=== PATIENT | female | born 1995 | race Caucasian/White ===

== ENCOUNTER 2016-06-10 13:39 | Emergency (ER) | payer BC ==
[2016-06-10 15:07] VITALS: BP 116/59
--- NOTE | 2016-06-10 17:03 | UC ---
FLU HPI - HPI Summary HPI Summary: SINUS CONGESTION CHEST CONGESTION COUGH, HEADACHE, FEVER. - History of Current Complaint Chief Complaint: UCGeneralIllness Stated Complaint: FLU SXS Time Seen by Provider: 06/10/16 15:16 Hx Obtained From: Patient Hx Last Menstrual Period: 06/10/16 Onset/Duration: Sudden Onset, Lasting Days, Still Present Severity Currently: Moderate Severity Initially: Moderate Pain Intensity: 0 Pain Scale Used: 0-10 Numeric Associated Signs & Symptoms: Positive: F/C, Myalgia, Cough, Nasal Congestion, Headache Related Hx: Possible Flu/Infectious Exposure - Allergy/Home Medications Allergies/Adverse Reactions: Allergies Allergy/AdvReac Type Severity Reaction Status Date / Time Amoxicillin Allergy Rash Verified 06/10/16 15:06 PMH/Surg Hx/FS Hx/Imm Hx Previously Healthy: Yes - Surgical History Surgical History: Yes Surgery Procedure, Year, and Place: Right great toe nail bed as young child - Family History Known Family History: Negative: Respiratory Disease - Social History Occupation: Student Lives: With Family Alcohol Use: None Substance Use Type: None Smoking Status (MU): Never Smoked Tobacco - Immunization History Most Recent Influenza Vaccination: [id number] Vaccination Up to Date: Yes Review of Systems Constitutional: Fever, Chills Skin: Negative Eyes: Negative ENT: Nasal Discharge Respiratory: Cough Cardiovascular: Negative Gastrointestinal: Negative Genitourinary: Negative Motor: Negative Neurovascular: Negative Musculoskeletal: Negative Neurological: Negative Psychological: Negative All Other Systems Reviewed And Are Negative: Yes Physical Exam Triage Information Reviewed: Yes Appearance: Well-Appearing, No Pain Distress, Ill-Appearing - MODERATE Vital Signs: Initial Vital Signs Temp 101.5 F 06/10/16 15:03 Pulse 87 06/10/16 15:03 Resp 17 06/10/16 15:03 BP 116/59 06/10/16 15:03 Pulse Ox 100 06/10/16 15:03 Vital Signs Reviewed: Yes Eye Exam: Normal Eyes: Positive: Conjunctiva Clear ENT: Positive: Hearing grossly normal, Pharynx normal, Nasal congestion, Nasal drainage, TM dull Dental Exam: Normal Neck exam: Normal Neck: Positive: Supple, Nontender, No Lymphadenopathy Respiratory Exam: Normal Respiratory: Positive: Chest non-tender, Lungs clear, Normal breath sounds, No respiratory distress, No accessory muscle use Cardiovascular Exam: Normal Cardiovascular: Positive: RRR, No Murmur, Pulses Normal, Brisk Capillary Refill Abdominal Exam: Normal Abdomen Description: Positive: Nontender, No Organomegaly Musculoskeletal Exam: Normal Musculoskeletal: Positive: Strength Intact, ROM Intact Neurological Exam: Normal Psychological Exam: Normal Skin Exam: Normal Flu Course/Dx - Differential Dx/Diagnosis Differential Diagnosis/HQI/PQRI: Influenza, Upper Respiratory Infection Provider Diagnoses: INFLUENZA Discharge - Discharge Plan Condition: Stable Disposition: HOME Prescriptions: Oseltamivir CAP* [Tamiflu CAP*] 75 mg PO BID #10 cap Patient Education Materials: Influenza (ED) Forms: *School Release Referrals: Hyun Humphreys MD [Primary Care Provider] -
== END 2016-06-10 16:42 | disposition home or self-care (01) ==
LOC: UCCORT 13:39
DX: J11.1 Influenza due to unidentified influenza virus with other respiratory manifestations (principal); Z88.1 Allergy status to other antibiotic agents
CPT/HCPCS: 87502; 99212; G0463

== ENCOUNTER 2016-06-14 17:23 | Emergency (ER) | payer BC ==
[2016-06-14 18:30] VITALS: BP 104/49
--- NOTE | 2016-06-14 18:53 | UC ---
Respiratory Complaint HPI - HPI Summary HPI Summary: Pt presents with c/o of cough that began ~ 6 days ago. Pt was diagnosed with influenza and began tamiflu. Pt reports that she is in general, feeling better but still has cough. Cough, is dry and keeping her up at night. - History of Current Complaint Chief Complaint: UCGeneralIllness Stated Complaint: COUGH Time Seen by Provider: 06/14/16 18:25 Hx Obtained From: Patient Hx Last Menstrual Period: 06/07/16 ?: No Onset/Duration: Gradual Onset, Lasting Days - 6 Timing: Intermittent Episodes Severity Initially: Mild Severity Currently: Mild Character: Cough: Nonproductive Aggravating Factors: Deep Breaths, Recumbent Position Alleviating Factors: Nothing Associated Signs And Symptoms: Positive: URI - Risk Factors Pulmonary Embolism Risk Factors: Negative Cardiac Risk Factors: Negative Pseudomonas Risk Factors: Negative Tuberculosis Risk Factors: Negative - Allergies/Home Medications Allergies/Adverse Reactions: Allergies Allergy/AdvReac Type Severity Reaction Status Date / Time Amoxicillin Allergy Rash Verified 06/14/16 18:23 Home Medications: Home Medications GuaiFENesin DM* [Robitussin DM*] 10 ml PO Q6H PRN 06/14/16 [History Confirmed ] Ibuprofen TAB* [Advil TAB*] 200 mg PO Q6H PRN 06/14/16 [History Confirmed ] PMH/Surg Hx/FS Hx/Imm Hx Previously Healthy: Yes - Surgical History Surgical History: Yes Surgery Procedure, Year, and Place: Right great toe nail bed as young child - Family History Known Family History: Negative: Respiratory Disease - Social History Alcohol Use: None Substance Use Type: None Smoking Status (MU): Never Smoked Tobacco - Immunization History Most Recent Influenza Vaccination: [id number] Vaccination Up to Date: Yes Review of Systems Constitutional: Fatigue Skin: Negative Eyes: Negative ENT: Other Respiratory: Cough Cardiovascular: Negative Gastrointestinal: Negative Genitourinary: Negative Motor: Negative Neurovascular: Negative Musculoskeletal: Negative Neurological: Negative Psychological: Negative All Other Systems Reviewed And Are Negative: Yes Physical Exam Triage Information Reviewed: Yes Appearance: Ill-Appearing Vital Signs: Initial Vital Signs Temp 98.1 F 06/14/16 18:24 Pulse 55 06/14/16 18:24 Resp 16 06/14/16 18:24 BP 104/49 06/14/16 18:24 Pulse Ox 99 06/14/16 18:24 Eye Exam: Normal ENT Exam: Other ENT: Positive: Nasal congestion Neck exam: Normal Respiratory Exam: Other Respiratory: Positive: Wheezing - mild Cardiovascular Exam: Normal Musculoskeletal Exam: Normal Neurological Exam: Normal Psychological Exam: Normal Skin Exam: Normal UC Diagnostic Evaluation - Laboratory O2 Sat by Pulse Oximetry: 99 Respiratory Course/Dx - Differential Dx/Diagnosis Differential Diagnosis/HQI/PQRI: Influenza, Other Provider Diagnoses: Post viral cough Discharge - Discharge Plan Condition: Stable Disposition: HOME Prescriptions: Albuterol HFA INHALER* [Ventolin HFA Inhaler*] 1 - 2 puff INH Q6H PRN #1 mdi PRN Reason: Wheezing Benzonatate CAP* [Tessalon 100 MG CAP*] 100 mg PO TID PRN #30 cap PRN Reason: Cough predniSONE TAB* [Deltasone TAB*] 30 mg PO DAILY #12 tab Patient Education Materials: Acute Cough (ED) Referrals: Hyun Humphreys MD [Primary Care Provider] - If Needed (Please follow up with your PCP [facility] )
[2016-06-14] MEDS ORDERED: Benzonatate CAP* 100 MG PO ONE (19:11)
== END 2016-06-14 19:20 | disposition home or self-care (01) ==
LOC: UCCORT 17:23
DX: R05 Cough (principal); Z88.1 Allergy status to other antibiotic agents
CPT/HCPCS: 99212; A9270-GY; G0463

== ENCOUNTER 2019-02-15 19:23 | Emergency (ER) | payer BC ==
--- NOTE | 2019-02-15 20:08 | UC ---
Respiratory Complaint HPI - HPI Summary HPI Summary: 23-year-old female who is had cough and cold symptoms for the past 5 days. She occasionally has a productive cough but does not spit it out she states once in a while she will have a little increased increased heart rate with exertion. - History of Current Complaint Stated Complaint: COUGH Time Seen by Provider: 02/15/19 19:59 Hx Obtained From: Patient Hx Last Menstrual Period: 06/07/16 ?: No Onset/Duration: Gradual Onset Severity Initially: Mild Severity Currently: Mild Character: Cough: Productive Aggravating Factors: Exertion - Occasionally productive. 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 - Surgical History Surgical History: Yes Surgery Procedure, Year, and Place: Right great toe nail bed as young child - Family History Known Family History: Negative: Respiratory Disease - Social History Occupation: Student Lives: With Family Alcohol Use: None Substance Use Type: None Smoking Status (MU): Never Smoked Tobacco - Immunization History Most Recent Influenza Vaccination: [id number] Vaccination Up to Date: Yes Review of Systems All Other Systems Reviewed And Are Negative: Yes ENT: Positive: Nasal Discharge Respiratory: Positive: Cough, Other - Denies shortness of breath but does state that with exertion she does have a mildly elevated heart rate. Is Patient Immunocompromised?: No Physical Exam Triage Information Reviewed: Yes Appearance: Well-Appearing, No Pain Distress, Well-Nourished Vital Signs Reviewed: Yes Eyes: Positive: Conjunctiva Clear ENT: Positive: Hearing grossly normal, Pharynx normal, Nasal congestion, Nasal drainage - Clear nasal coryza, TMs normal, Uvula midline Neck: Positive: Supple, Nontender, No Lymphadenopathy Respiratory: Positive: Lungs clear, Normal breath sounds, No respiratory distress, No accessory muscle use, Other: - Harsh cough. Cardiovascular: Positive: RRR, No Murmur, Pulses Normal, Brisk Capillary Refill Musculoskeletal Exam: Normal Musculoskeletal: Positive: Strength Intact, ROM Intact Neurological Exam: Normal Psychological Exam: Normal Skin Exam: Normal Respiratory Course/Dx - Course Course Of Treatment: Chest x-ray: Possibility of right lower lobe pneumonia as read by myself and Dr. White. Patient is comfortable here and in no distress. I'm going to treat her with a Z -Arnaldo and follow-up with her primary care provider if no improvement by Wednesday. Zithromax 500 mg by mouth was given here. - Differential Dx/Diagnosis Provider Diagnosis: RLL pneumonia Discharge ED - Sign-Out/Discharge Documenting (check all that apply): Patient Departure All imaging exams completed and their final reports reviewed: No - Discharge Plan Condition: Good Disposition: HOME Prescriptions: Azithromycin TAB* [Zithromax TAB (Z-ARNALDO) 250 mg #6 tabs] 250 mg PO DAILY 4 Days #4 tab Patient Education Materials: Community Acquired Pneumonia (DC) Referrals: Hyun Humphreys MD [Primary Care Provider] - Additional Instructions: Increase fluids, take Your prescription tomorrow and take 1 tablet daily. Definite follow-up with your primary care provider on Wednesday if no improvement. If you develop any worsening symptoms or difficulty breathing go to the emergency room. Call your primary care provider and make an appointment for recheck to make sure the pneumonia has cleared. If there is any difference in the x-ray reading tomorrow then we will give you call. - Billing Disposition and Condition Condition: GOOD Disposition: Home - Attestation Statements Provider Attestation: I was available for consult. This patient was seen by the ROSA MARIA. The patient was not presented to, seen by, or examined by me. -Rocky
[2019-02-15 20:09] VITALS: BP 109/55
[2019-02-15] MEDS ORDERED: Azithromycin TAB* 250 MG PO ONE (20:30)
--- NOTE | 2019-02-16 09:11 | UC ---
- Progress Note Progress Note: Patient Name: GOPI CAMPA Medical Record#: [id number] Ordering Physician: Laura Farrell NP Acct.#: [id number] : 1995 Age: 23 Sex: F [facility] Ex[facility] Date: 02/15/192003 ADM Status: DEP ER Order Information: CHEST PA & LAT 2 VWS Accession Number: [id number] CPT: 19833 Indication: Cough. 2 views of the chest including dual energy PA views are reviewed. No mediastinal shift is noted. Heart is of normal size and configuration. Airspace disease in the right base is noted consistent with right basilar pneumonia. Left lung field is clear. IMPRESSION: Right basilar pneumonia. Left lung field is clear. R0 Preliminary Imaging Read R0 <Electronically signed by Lilian Cordova MD in OV> 02/16/19814 Dictated By: Lilian Cordova MD Dictated Date/Time: 02/16/19813 Transcribed Date/Time: 02/16/19813 Copy to: CC:Laura Farrell NP; Belem White MD; Hyun Humphreys MD Imaging - [facility] [address] [place] [address] ph ([phone]) ph ([phone]) ph ([phone]) This report is only to be considered final once signed by the Provider(s) as displayed in the "<Electronically Signed by >" field (s). Absence of a signature indicates the report is in a draft status and still needs to be finalized. In the event this document was created by someone other than the signing Provider, the individual initiating the document will be listed in the "Entered by:" or "Dictated by:" carnes. 1 of 1 Course/Dx - Diagnoses Provider Diagnoses: RLL pneumonia Discharge ED - Sign-Out/Discharge Documenting (check all that apply): Post-Discharge Follow Up All imaging exams completed and their final reports reviewed: Yes - Discharge Plan Condition: Good Disposition: HOME Prescriptions: Azithromycin TAB* [Zithromax TAB (Z-JENNIFER) 250 mg #6 tabs] 250 mg PO DAILY 4 Days #4 tab Patient Education Materials: Community Acquired Pneumonia (DC) Referrals: Hyun Humphreys MD [Primary Care Provider] - Additional Instructions: Increase fluids, take Your prescription tomorrow and take 1 tablet daily. Definite follow-up with your primary care provider on Wednesday if no improvement. If you develop any worsening symptoms or difficulty breathing go to the emergency room. Call your primary care provider and make an appointment for recheck to make sure the pneumonia has cleared. If there is any difference in the x-ray reading tomorrow then we will give you call. - Billing Disposition and Condition Condition: GOOD Disposition: Home
== END 2019-02-15 20:41 | disposition home or self-care (01) ==
LOC: UCCORT 19:23
DX: J18.1 Lobar pneumonia, unspecified organism (principal); E06.3 Autoimmune thyroiditis; J34.89 Other specified disorders of nose and nasal sinuses; Z88.0 Allergy status to penicillin
CPT/HCPCS: 71046; 99212; A9270-GY; G0463